=== PATIENT | male | born 1990 | race Caucasian/White ===

== ENCOUNTER → 2018-12-05 | Day surgery (SDC) | payer MEDICAID ==
[~2018-12-05] VITALS: Ht 154.9 cm; Wt 77.1 kg
[~2018-12-05] MED LIST: ACET-2178 PO; APIX5TAB MT; BENZ-16 MT; BISO5TAB13 PO; DIGO125T82 MT; LIDOCAINE HCL 1% 20ML VIAL (Pyxis) INJ ONE
== END | disposition home or self-care (01) ==
LOC: CCL 06:23
PROVIDERS: ATTEND Internal Medicine Clinical Cardiac Electrophysiology
DX: I48.92 Unspecified atrial flutter (principal); Z53.8 Procedure and treatment not carried out for other reasons
CPT/HCPCS: J1644; J3490

== ENCOUNTER 2018-12-19 06:28 | Inpatient (IN) | payer MEDICAID ==
[2018-12-19] VITALS (9 sets, daily range): BP systolic 98–134; BP diastolic 50–73
[~2018-12-19] VITALS: Ht 154.9 cm; Wt 80.3 kg
[~2018-12-19 06:28] MED LIST changes: -ACET-2178 PO; -BENZ-16 MT; -LIDOCAINE HCL 1% 20ML VIAL (Pyxis) INJ ONE
[2018-12-19] MEDS ORDERED: HEPARIN SODIUM 1,000 UNIT/1ML VIAL IV ONE (07:30)
[2018-12-19] MEDS ORDERED: HEPARIN 1,000 UNITS PREMIX 2,000 ML IV ONE (07:35)
[2018-12-19] MEDS ORDERED: LIDOCAINE HCL 1% 20ML VIAL (Pyxis) INJ ONE (07:35)
[2018-12-19 07:55] LABS: CHLORIDE 107 mEq/L (98-107)
[2018-12-19 07:59] LABS: PARTIAL THROMBOPLASTIN TIME 32.3 sec (23.4-31.0); PROTHROMBIN TIME 10.1 sec (9.6-11.0)
[2018-12-19 08:00] LABS: HEMATOCRIT 41.9 % (42.0-52.0); HEMOGLOBIN 14.5 g/dL (14.0-18.0); MEAN CORPUSCULAR HEMOGLOBIN 30.5 pg (28.0-32.0); PLATELET 202 x1000/uL (130-400); RED BLOOD CELL COUNT 4.76 mill/uL (4.7-6.1); RED CELL DISTRIBUTION WIDTH 12.8 % (11.6-14.6)
[2018-12-19] MEDS ORDERED: MIDAZOLAM HCL 2 MG/2 ML VIAL ONE ×2 (08:12→08:50)
[2018-12-19] MEDS ORDERED: FENTANYL CITRATE/PF 50MCG/ML 2ML VIAL ONE ×2 (08:12→08:50)
[2018-12-19] MEDS ORDERED: ROCURONIUM BROMIDE 10MG/ML VIAL 5ML IV ONE (08:13)
[2018-12-19] MEDS ORDERED: LIDOCAINE HCL/PF 1% 10 MG/ML 5ML VIAL ONE (08:13)
[2018-12-19] MEDS ORDERED: SUCCINYLCHOLINE CHLORIDE 200MG/10ML IV ONE (08:13)
[2018-12-19] MEDS ORDERED: PROPOFOL 200MG/20ML VIAL IV ONE (08:13)
[2018-12-19] MEDS ORDERED: CEFAZOLIN SODIUM 1000MG/VIAL ONE (08:14)
[2018-12-19] MEDS ORDERED: SODIUM CHLORIDE 0.9% 10ML VIAL ONE ×2 (08:14→09:35)
[2018-12-19] MEDS ORDERED: EPHEDRINE SULFATE 50MG/ML VIAL ONE ×2 (09:35→12:55)
[2018-12-19] MEDS ORDERED: GLYCOPYRROLATE 0.2 MG/ML 2ML VIAL ONE (09:37)
[2018-12-19] MEDS ORDERED: FUROSEMIDE 20MG/2ML VIAL ONE (14:07)
[2018-12-19] MEDS ORDERED: ONDANSETRON HCL 4MG/2ML INJ ONE (14:13)
[2018-12-19] MEDS ORDERED: ATROPINE SULFATE 1MG/10ML SYR IV PRN (15:15)
[2018-12-19] MEDS ORDERED: ACETAMINOPHEN 325MG TABLET PO PRN (15:15)
[2018-12-19] MEDS: ONDANSETRON HCL 4MG/2ML INJ IV PRN (18:24)
[2018-12-20] VITALS (7 sets, daily range): BP systolic 99–128; BP diastolic 58–83
[2018-12-20] MEDS: ONDANSETRON HCL 4MG/2ML INJ IV PRN (00:45)
[2018-12-20 06:34] LABS: CHLORIDE 107 mEq/L (98-107)
[2018-12-20 06:47] LABS: BASOPHILS % 0.3 % (0.0-2.0); HEMATOCRIT. 39.2 % (42.0-52.0); HEMOGLOBIN. 13.5 g/dL (14.0-18.0); LYMPHOCYTES % 10.5 % (20.0-50.0); MEAN CORPUSCULAR HEMOGLOBIN 30.7 pg (28.0-32.0); MEAN CORPUSCULAR VOLUME 89.3 fL (80.0-94.0); MONOCYTES % 9.9 % (2.0-8.0); NEUTROPHILS % 79.3 % (40.0-76.0); PLATELET 193 x1000/uL (130-400); RED BLOOD CELL COUNT 4.39 mill/uL (4.7-6.1); RED CELL DISTRIBUTION WIDTH 13.2 % (11.6-14.6)
[2018-12-20] MEDS ORDERED: DIGOXIN 125MCG TABLET PO SCH (09:00)
[2018-12-20] MEDS ORDERED: APIXABAN 5 MG TABLET PO SCH (09:00)
[2018-12-20] MEDS ORDERED: GUAIFENESIN 200MG/10ML SUGAR FREE UDC PO PRN (09:45)
== END 2018-12-20 11:03 | disposition home or self-care (01) | DRG 175 ==
LOC: CCL 06:28 → 3WST 18:28
PROVIDERS: ADMIT Internal Medicine Clinical Cardiac Electrophysiology; ATTEND Internal Medicine Clinical Cardiac Electrophysiology
PROC: 02583ZZ Destruction of Conduction Mechanism, Percutaneous Approach (ICD-10-PCS; principal; 2018-12-19)
PROC: 02K83ZZ Map Conduction Mechanism, Percutaneous Approach (ICD-10-PCS; 2018-12-19)
PROC: 4A023FZ Measurement of Cardiac Rhythm, Percutaneous Approach (ICD-10-PCS; 2018-12-19)
PROC: 4A0234Z Measurement of Cardiac Electrical Activity, Percutaneous Approach (ICD-10-PCS; 2018-12-19)
DX: I48.4 Atypical atrial flutter (principal); I50.22 Chronic systolic (congestive) heart failure; I48.1 Persistent atrial fibrillation; J45.909 Unspecified asthma, uncomplicated
CPT/HCPCS: 36415; 80048; 85027; 92960; 93005; 93613; 93621; 93653; 93662; 97166; C1731; C1732; C1759; C1760; C1893; C1894; J0330; J0690; J1644; J1940; J2250; J2405; J2704; J3010; J3490

== ENCOUNTER 2018-12-21 19:14 | Inpatient (IN) | payer MEDICAID ==
[~2018-12-21] VITALS: Ht 154.9 cm; Wt 78.5 kg
[2018-12-21] MEDS ORDERED: ACETAMINOPHEN 325MG TABLET PO STA (20:20)
[2018-12-21] MEDS ORDERED: SODIUM CHLORIDE 0.9% 1000ML BAG (SEPSIS BOLUS) IV ONE (20:30)
[2018-12-21 21:34] LABS: CLARITY URINE CLEAR (CLEAR); COLOR URINE DARK YELLOW (YELLOW); KETONES URINE TRACE (NEGATIVE); LEUKOCYTE ESTERASE URINE TRACE (NEGATIVE); NITRITE URINE NEGATIVE (NEGATIVE); OCCULT BLOOD URINE NEGATIVE (NEGATIVE); PH URINE 5.5 (4.5-8.0); PROTEIN URINE 1+ (NEGATIVE); SPECIFIC GRAVITY URINE 1.029 (1.005-1.030)
[2018-12-21 21:51] LABS: HEMATOCRIT. 36.1 % (42.0-52.0); HEMOGLOBIN. 12.4 g/dL (14.0-18.0); MEAN CORPUSCULAR HEMOGLOBIN 30.3 pg (28.0-32.0); MEAN CORPUSCULAR VOLUME 88.2 fL (80.0-94.0); MEAN PLATELET VOLUME 8.9 fl (7.4-10.4); PLATELET 174 x1000/uL (130-400); RED BLOOD CELL COUNT 4.09 mill/uL (4.7-6.1); RED CELL DISTRIBUTION WIDTH 13.1 % (11.6-14.6)
[2018-12-21 21:57] LABS: CHLORIDE 102 mEq/L (98-107)
[2018-12-21 21:58] LABS: INR 1.1; PROTHROMBIN TIME 11.8 sec (9.6-11.0)
[2018-12-21 22:16] LABS: PLATELET ESTIMATE NORMAL
[2018-12-21] MEDS ORDERED: LEVOFLOXACIN 750MG PREMIX 150 ML IV ONE (22:30)
[2018-12-21] MEDS ORDERED: ONDANSETRON HCL 4MG/2ML INJ IV PRN (23:15)
[2018-12-21] MEDS ORDERED: GUAIFENESIN 200MG/10ML SUGAR FREE UDC PO PRN (23:15)
[2018-12-21] MEDS ORDERED: MAGNESIUM/ALUMINUM HYDROXIDE/SIMETHICONE 30ML UDC PO PRN (23:15)
[2018-12-21] MEDS ORDERED: CLONIDINE 0.1MG TABLET PO PRN (23:15)
[2018-12-21] MEDS ORDERED: DOCUSATE SODIUM 100MG CAPSULE PO PRN (23:15)
[2018-12-21] MEDS ORDERED: IPRATROPIUM/ALBUTEROL 0.5-3(2.5)MG/3ML NEB INH PRN (23:15)
[2018-12-21] MEDS ORDERED: HYDROCODONE/ACETAMINOPHEN 5/325MG TABLET PO PRN (23:15)
[2018-12-22] VITALS (7 sets, daily range): BP systolic 102–112; BP diastolic 51–66
[2018-12-22] MEDS ORDERED: AZITHROMYCIN 500 MG in DEXT 5% WATER 250 ML IV SCH ×2
[2018-12-22] MEDS ORDERED: CEFTRIAXONE 1 G PREMIX 50 ML IV SCH
[2018-12-22] MEDS: ACETAMINOPHEN 325MG TABLET PO PRN ×3 (01:04→17:09)
[2018-12-22] MEDS ORDERED: ENOXAPARIN 40MG/0.4ML SYR SUBCUT SCH (06:00)
[2018-12-22 08:04] LABS: *AMPHETAMINES SCREEN URINE NEGATIVE (NEGATIVE); *BARBITURATES SCREEN URINE NEGATIVE (NEGATIVE); *BENZODIAZEPINES SCREEN URINE PRESUMTIVE POSITIVE (NEGATIVE); *COCAINE SCREEN URINE NEGATIVE (NEGATIVE); METHADONE URINE SCREEN NEGATIVE (NEGATIVE)
[2018-12-22 08:05] LABS: CANNABINOID URINE SCREEN NEGATIVE (NEGATIVE); OPIATES URINE SCREEN NEGATIVE (NEGATIVE); PHENCYCLIDINE URINE SCREEN NEGATIVE (NEGATIVE)
[2018-12-22] MEDS: LISINOPRIL 10MG TABLET PO SCH (08:50)
[2018-12-22] MEDS ORDERED: ASPIRIN 81MG EC TABLET PO SCH (09:00)
[2018-12-22 09:13] LABS: BASOPHILS % 0.6 % (0.0-2.0); EOSINOPHILS % 0.3 % (0.0-5.0); HEMATOCRIT. 34.6 % (42.0-52.0); HEMOGLOBIN. 11.9 g/dL (14.0-18.0); LYMPHOCYTES % 7.6 % (20.0-50.0); MEAN CORPUSCULAR HEMOGLOBIN 30.3 pg (28.0-32.0); MEAN CORPUSCULAR VOLUME 88.5 fL (80.0-94.0); MEAN PLATELET VOLUME 8.4 fl (7.4-10.4); NEUTROPHILS % 85.5 % (40.0-76.0); PLATELET 145 x1000/uL (130-400); RED BLOOD CELL COUNT 3.92 mill/uL (4.7-6.1); RED CELL DISTRIBUTION WIDTH 12.9 % (11.6-14.6)
[2018-12-22 09:28] LABS: HDL CHOLESTEROL 37 mg/dL (40-59); LDL CHOLESTEROL 115 mg/dL (5-100)
[2018-12-22 09:31] LABS: CREATINE KINASE MB FRACTION < 1.0 ng/mL (0.5-3.6)
[2018-12-22 09:42] LABS: CREATINE KINASE 1372 IU/L (39-308)
[2018-12-22] MEDS ORDERED: NON FORMULARY PATIENT HOME MED XX SCH (12:00)
[2018-12-22] MEDS: DIGOXIN 125MCG TABLET PO SCH (12:51)
[2018-12-22] MEDS: APIXABAN 5 MG TABLET PO SCH ×2 (12:51→17:07)
[2018-12-22 18:36] LABS: CREATINE KINASE MB FRACTION < 1.0 ng/mL (0.5-3.6)
[2018-12-22 19:04] LABS: CREATINE KINASE 1173 IU/L (39-308)
[2018-12-22] MEDS: BISOPROLOL FUMARATE 5 MG TABLET PO SCH (20:40)
[2018-12-22] MEDS ORDERED: LOPERAMIDE HCL 2MG CAPSULE PO PRN (21:00)
[2018-12-23] VITALS: BP 105/47
[2018-12-23 04:00] VITALS: BP 99/72
[2018-12-23 07:05] LABS: BASOPHILS % 0.4 % (0.0-2.0); EOSINOPHILS % 1.1 % (0.0-5.0); HEMATOCRIT. 36.4 % (42.0-52.0); HEMOGLOBIN. 12.6 g/dL (14.0-18.0); LYMPHOCYTES % 12.5 % (20.0-50.0); MEAN CORPUSCULAR HEMOGLOBIN 30.4 pg (28.0-32.0); MEAN PLATELET VOLUME 8.9 fl (7.4-10.4); MONOCYTES % 8.4 % (2.0-8.0); NEUTROPHILS % 77.6 % (40.0-76.0); PLATELET 170 x1000/uL (130-400); RED BLOOD CELL COUNT 4.13 mill/uL (4.7-6.1); RED CELL DISTRIBUTION WIDTH 12.7 % (11.6-14.6)
[2018-12-23 07:16] LABS: CHLORIDE 101 mEq/L (98-107)
[2018-12-23 08:06] VITALS: BP 114/69
[2018-12-23] MEDS: APIXABAN 5 MG TABLET PO SCH ×2 (08:41→16:50)
[2018-12-23] MEDS: LISINOPRIL 10MG TABLET PO SCH (08:41)
[2018-12-23] MEDS: BISOPROLOL FUMARATE 5 MG TABLET PO SCH (08:41)
[2018-12-23] MEDS: DIGOXIN 125MCG TABLET PO SCH (08:41)
[2018-12-23] MEDS ORDERED: POTASSIUM CHLORIDE 20MEQ TABLET SR PO NR (10:00)
[2018-12-23 11:46] VITALS: BP 100/52
[2018-12-23] MEDS ORDERED: ACET-2178 PO (13:17)
[2018-12-23] MEDS ORDERED: BENZ-16 MT (13:27)
[2018-12-23 15:59] VITALS: BP 100/54
[2018-12-23 16:00] VITALS: BP 112/64
== END 2018-12-23 18:45 | disposition home or self-care (01) | DRG 113 ==
LOC: ER 19:56 → ENRESERV 12-22 01:53 → 5WST 12-22 03:58
PROVIDERS: ADMIT Internal Medicine; ATTEND Internal Medicine
DX: J02.8 Acute pharyngitis due to other specified organisms (principal); J18.9 Pneumonia, unspecified organism; I38 Endocarditis, valve unspecified; I48.2 Chronic atrial fibrillation; D72.0 Genetic anomalies of leukocytes; I48.4 Atypical atrial flutter; D64.9 Anemia, unspecified; E78.5 Hyperlipidemia, unspecified; D72.829 Elevated white blood cell count, unspecified; R74.0 Nonspecific elevation of levels of transaminase and lactic acid dehydrogenase [LDH]; Z79.01 Long term (current) use of anticoagulants; Z86.73 Personal history of transient ischemic attack (TIA), and cerebral infarction without residual deficits; Z79.899 Other long term (current) drug therapy
CPT/HCPCS: 36415; 71045; 80048; 80061; 80076; 80305; 81003; 82550; 82553; 83605; 84145; 84443; 84484; 87070; 87077; 87186; 87430; 87493; 89055; 93005; 93970; 96374; 99285; J0456; J0696; J1650; J1956; J7030; J7060